=== PATIENT | male | born 2000 | race Two or more races ===

== ENCOUNTER 2022-03-05 03:06 | Emergency (ER) | payer OTHER ==
[~2022-03-05] VITALS: Ht 175.3 cm; Wt 72.6 kg
== END 2022-03-05 07:27 | disposition home or self-care (01) ==
LOC: ER 03:06
DX: S00.511A Abrasion of lip, initial encounter (principal); S80.212A Abrasion, left knee, initial encounter; S80.211A Abrasion, right knee, initial encounter; Y08.89XA Assault by other specified means, initial encounter; Y93.9 Activity, unspecified